=== PATIENT | female | born 1965 | race Caucasian/White ===

== ENCOUNTER → 2016-06-12 | Outpatient (CLI) | payer OTHER ==
[~2016-06-12] MED LIST: ALBU0.08 INH; ALBU1AER9 INH; ATOR10TA88 PO; AZITTAB PO; CALC-20 PO; SYMIN160 INH; Vitamin D PO
--- NOTE | 2016-06-12 15:37 | MAMMOGRAPHY REPORT ---
BILATERAL DIGITAL SCREENING MAMMOGRAM TOMOSYNTHESIS WITH CAD: 06/12/2016 CLINICAL HISTORY: Routine screening. Patient has no complaints. TECHNIQUE: Breast tomosynthesis in addition to standard 2D mammography was performed. Current study was also evaluated with a Computer Aided Detection (CAD) system. COMPARISON: Comparison is made to exams dated: 06/12/2015 mammogram, 05/02/2013 mammogram, 05/03/2014 m ammogram, 04/29/2012 mammogram, 04/28/2011 mammogram, and 04/25/2010 mammogram - [facility]. BREAST COMPOSITION: The tissue of both breasts is extremely dense, which lowers the sensitivity of mammography. FINDINGS: No suspicious masses, calcifications, or areas of architectural distortion are noted in e ither breast. There has been no significant interval change compared to prior exams. IMPRESSION: ACR BI-RADS CATEGORY 1: NEGATIVE There is no mammographic evidence of malignancy. A 1 year screening mammogram is recommended. The p atient will receive written notification of the results. Approximately 10% of breast cancers are not detected with mammography. A negative mammographic repor t should not delay biopsy if a clinically suggestive mass is present. Nadeen Castellanos M.D. ah/:06/12/2016 15:30:46 Shop Tailor Apprentice: Alma AYALA(R)(M), [facility] letter sent: Normal 1/2 BI-RADS Code: ACR BI-RADS Category 1: Negative
== END | disposition home or self-care (01) ==
LOC: C.MAMM 13:10
PROVIDERS: ATTEND Internal Medicine
DX: Z12.31 Encounter for screening mammogram for malignant neoplasm of breast (principal)

== ENCOUNTER → 2016-08-11 | Outpatient (CLI) | payer OTHER ==
[~2016-08-11] MED LIST changes: +ATOR10TA82 PO; -ATOR10TA88 PO
[2016-08-11 18:17] LABS: IMMUNOGLOBULN M 27.6 mg/dL (40-230)
[2016-08-15 15:59] LABS: IGG SERUM 709 mg/dL (694-1618); PNEUMOCOCCAL IGG TYPE 1 <0.3 mcg/mL; PNEUMOCOCCAL IGG TYPE 12(12F 0.5 mcg/mL; PNEUMOCOCCAL IGG TYPE 14 47.6 mcg/mL; PNEUMOCOCCAL IGG TYPE 19(19F 2.5 mcg/mL; PNEUMOCOCCAL IGG TYPE 26 (6B 1.7 mcg/mL; PNEUMOCOCCAL IGG TYPE 3 <0.3 mcg/mL; PNEUMOCOCCAL IGG TYPE 4 <0.3 mcg/mL; PNEUMOCOCCAL IGG TYPE 5 15.6 mcg/mL; PNEUMOCOCCAL IGG TYPE 51 (7F <0.3 mcg/mL; PNEUMOCOCCAL IGG TYPE 56(18C 1.3 mcg/mL; PNEUMOCOCCAL IGG TYPE 68 (9V 2.3 mcg/mL; PNEUMOCOCCAL IGG TYPE 8 0.3 mcg/mL; PNEUMOCOCCAL IGG TYPE 9 (9N) 4.6 mcg/mL
== END | disposition home or self-care (01) ==
LOC: C.LAB1850 16:29
PROVIDERS: ATTEND Internal Medicine Pulmonary Disease
DX: D80.0 Hereditary hypogammaglobulinemia (principal); J45.909 Unspecified asthma, uncomplicated; J18.9 Pneumonia, unspecified organism

== ENCOUNTER → 2016-10-03 | Outpatient (CLI) | payer OTHER ==
[~2016-10-03] MED LIST changes: -ATOR10TA82 PO; +ATOR10TA88 PO
--- NOTE | 2016-10-03 10:35 | DIAGNOSTIC IMAGING REPORT ---
CHEST 2 VIEWS ROUTINE CLINICAL HISTORY: R91.1 Lung [id number] Recurrent [id number] COMPARISON STUDY: 02/15/2016 FINDINGS: The cardiac and mediastinal contours are normal. There is no evidence of focal pulmonary consolidation. There is no evidence of failure. No pleural effusions are visualized.[ There is a stable right cardiophrenic angle mass, consistent with either a fat pad or pericardial cyst. IMPRESSION: No active disease in the chest. Electronically signed by: Ramone Menezes M.D. 10/03/2016 10:34 AM Dictated Date/Time: 10/03/2016 10:34 AM
== END | disposition home or self-care (01) ==
LOC: C.RADBBURG 10:08
PROVIDERS: ATTEND Physician Assistant
DX: J18.9 Pneumonia, unspecified organism (principal); R05 Cough; R91.1 Solitary pulmonary nodule

== ENCOUNTER → 2016-10-16 | Outpatient (CLI) | payer OTHER ==
[2016-10-22 12:40] LABS: IGE RECEPTOR AB(ANTI-IgE IgG)* 72 ng/mL (<168); IGG SERUM 709 mg/dL (694-1618); PNEUMOCOCCAL IGG TYPE 12(12F 0.6; PNEUMOCOCCAL IGG TYPE 19(19F 2.8; PNEUMOCOCCAL IGG TYPE 23(23F 4.6; PNEUMOCOCCAL IGG TYPE 26 (6B 3.4; PNEUMOCOCCAL IGG TYPE 3 0.5; PNEUMOCOCCAL IGG TYPE 4 <0.3; PNEUMOCOCCAL IGG TYPE 51 (7F 0.4; PNEUMOCOCCAL IGG TYPE 56(18C 2.2; PNEUMOCOCCAL IGG TYPE 68 (9V 7.9; PNEUMOCOCCAL IGG TYPE 8 0.7
== END | disposition home or self-care (01) ==
LOC: C.LAB 15:42
PROVIDERS: ATTEND Physician Assistant Medical
DX: D80.0 Hereditary hypogammaglobulinemia (principal); J18.9 Pneumonia, unspecified organism; R05 Cough

== ENCOUNTER → 2016-11-27 | Outpatient (CLI) | payer OTHER ==
--- NOTE | 2016-11-27 16:26 | DIAGNOSTIC IMAGING REPORT ---
CT SCAN OF THE CHEST WITHOUT IV CONTRAST CLINICAL HISTORY: Pulmonary nodule. Recurrent pneumonia. COMPARISON STUDY: Chest x-ray dated 10/03/2016. Chest CT dated 10/30/2010. TECHNIQUE: CT scan of the thorax was performed from the thoracic inlet to the upper abdomen. Images are reviewed in the axial, sagittal, and coronal planes. IV contrast was not administered for this examination as per the front clinician. A dose lowering technique was utilized adhering to the principles of ALARA. CT DOSE: 191.57 mGy.cm FINDINGS: Thyroid: Imaged portions of the thyroid gland are normal in size and attenuation. Thoracic aorta: The thoracic aorta is normal in caliber and demonstrates standard 3-vessel arch anatomy. Heart: The heart is normal in size and without pericardial effusion. Lungs and pleural spaces: Biapical scarring is observed. There is atelectasis versus scarring present in the right middle lobe and lingula. Oh airspace consolidation is seen typical for pneumonia and there is no pleural effusion. Scattered calcified granulomas are observed. The trachea and central airways are clear. There is a 4.5 mm pulmonary nodule in the superior segment of the right lower lobe seen on axial image #97. Mediastinum: There are scattered subcentimeter mediastinal lymph nodes. These are not pathologically enlarged by size criteria. [place]: Not well assessed without IV contrast. Axillae: There is no axillary lymphadenopathy. Upper abdomen: There is a tiny hiatal hernia. Partially visualized upper abdominal viscera is otherwise within normal limits. Skeletal structures: No lytic or blastic bony lesions are seen. IMPRESSION: 1. There is no airspace consolidation or pleural effusion. 2. There is a 4.5 mm right lower lobe pulmonary nodule. This has not significantly changed from 2011 and is of doubtful significance. 3. No new pulmonary nodules are identified. 4. Linear scarring versus atelectasis is identified in right middle lobe and lingula. This is nonspecific but could be seen in the setting of a chronic/atypical infectious process such as KALLI. Clinical correlation will be required. Electronically signed by: Kvng Aquino M.D. 11/27/2016 4:24 PM Dictated Date/Time: 11/27/2016 4:17 PM
== END | disposition home or self-care (01) ==
LOC: C.CTS 16:09
PROVIDERS: ATTEND Physician Assistant
DX: R91.1 Solitary pulmonary nodule (principal); J18.9 Pneumonia, unspecified organism

== ENCOUNTER → 2017-05-12 | Outpatient (CLI) | payer BC ==
[~2017-05-12] MED LIST changes: +ATOR10TA82 PO; -ATOR10TA88 PO
--- NOTE | 2017-05-12 12:12 | DIAGNOSTIC IMAGING REPORT ---
CHEST 2 VIEWS ROUTINE CLINICAL HISTORY: Cough. COMPARISON STUDY: Chest CT November 27, 2016 and chest radiograph February 19, 2017. FINDINGS: Biapical opacity, right greater than left, is unchanged and due to scarring. Opacity at the right cardiophrenic angle was shown to represent fat on prior CT. Cardiac size is normal. There is no evidence for pulmonary edema. No pneumothorax or pleural effusion is noted. Apparent mild left lower lung opacity shown on exam of February 19, 2017 has resolved. IMPRESSION: 1. No acute cardiopulmonary findings. 2. Resolution of left lower lung airspace opacity shown on study of February 19, 2017. Electronically signed by: Samuel Cisneros M.D. 05/12/2017 12:11 PM Dictated Date/Time: 05/12/2017 12:09 PM
== END | disposition home or self-care (01) ==
LOC: C.RAD1850 12:00
PROVIDERS: ATTEND Physician Assistant
DX: R05 Cough (principal)

== ENCOUNTER → 2017-06-15 | Outpatient (CLI) | payer BC ==
--- NOTE | 2017-06-16 15:16 | MAMMOGRAPHY REPORT ---
BILATERAL DIGITAL SCREENING MAMMOGRAM TOMOSYNTHESIS WITH CAD: 06/15/2017 CLINICAL HISTORY: Routine screening. Patient has no complaints. TECHNIQUE: Breast tomosynthesis in addition to standard 2D mammography was performed. Current study was also evaluated with a Computer Aided Detection (CAD) system. COMPARISON: Comparison is made to exams dated: 06/12/2016 mammogram, 06/12/2015 mammogram, 05/03/2014 jaswant mogram, 05/02/2013 mammogram, 04/29/2012 mammogram, and 04/28/2011 mammogram - [facility] ter. BREAST COMPOSITION: The tissue of both breasts is extremely dense, which lowers the sensitivity of m ammography. FINDINGS: The parenchymal pattern is unchanged. No developing mass, architectural distortion or clus ter of suspicious microcalcifications is seen in either breast. There are a few stable benign-appear ing punctate calcifications in the left breast. IMPRESSION: ACR BI-RADS CATEGORY 2: BENIGN There is no mammographic evidence of malignancy. A 1 year screening mammogram is recommended. The pa tient will receive written notification of the results. Approximately 10% of breast cancers are not detected with mammography. A negative mammographic report should not delay biopsy if a clinically suggestive mass is present. Constance Soto M.D. ay/:06/15/2017 15:51:38 Personal Caregiver: Francia Mata, [facility] letter sent: Normal 1/2 BI-RADS Code: ACR BI-RADS Category 2: Benign
== END | disposition home or self-care (01) ==
LOC: C.MAMM 12:56
PROVIDERS: ATTEND Internal Medicine
DX: Z12.31 Encounter for screening mammogram for malignant neoplasm of breast (principal)